=== PATIENT | male | born 1970 | race Caucasian/White ===

== ENCOUNTER 2016-07-02 15:47 | Emergency (ER) | payer SELFPAY ==
[~2016-07-02] VITALS: Ht 180.3 cm; Wt 73.4 kg
[~2016-07-02 15:47] MED LIST: LAMO150T32 PO; LEVO150T9 PO
[2016-07-02 15:51] VITALS: TEMP 36.8; Ht 180.3 cm; Wt 73.4 kg
[2016-07-02] MEDS ORDERED: SODIUM CHLORIDE 0.9% 1000ML 1,000 ML IV STA ×2 (16:04)
[2016-07-02] MEDS ORDERED: ONDANSETRON 8 MG/54 ML D5W IV STA (16:08)
[2016-07-02] MEDS ORDERED: DIAZEPAM INJ 5 MG/ML 2 ML CARP IV STA (16:08)
[2016-07-02 16:23] LABS: PROTHROMBIN TIME (PATIENT) 10.7 SECONDS (9.0-12.0)
[2016-07-02 16:29] LABS: BUN/CREATININE RATIO 13.1 (10-20); CALCIUM 8.7 mg/dl (8.5-10.1); CREATININE 0.91 mg/dl (0.60-1.40); MAGNESIUM 2.3 mg/dl (1.8-2.4)
[2016-07-02 16:40] LABS: THYROID STIMULATING HORMONE 1.2 uIu/ml (0.300-4.500)
[2016-07-02 16:58] LABS: BASO % 0.1 %; BASO ABS # 0.01 K/uL (0-0.2); COMPLETE YES; HEMATOCRIT 41.5 % (42-52); IG% 0.2 %; LYMPH % 8.8 %; LYMPH ABS # 0.94 K/uL (1.2-3.4); MEAN CELL VOLUME 90.4 fL (80-100); MEAN CORPUSCULAR HEMOGLOBIN 32.5 pg (25-34); MEAN CORPUSCULAR HGB CONC 35.9 g/dl (32-36); MEAN PLATELET VOLUME 8.8 fL (7.4-10.4); MONO % 5.4 %; NEUT % 85.5 %; PLATELET COUNT 225 K/uL (130-400); RED BLOOD COUNT 4.59 M/uL (4.7-6.1)
--- NOTE | 2016-07-02 17:30 | DIAGNOSTIC IMAGING REPORT ---
HEAD CT NONCONTRAST CT DOSE: 614.27 mGy.cm HISTORY: dizziness TECHNIQUE: Multiaxial CT images of the head were performed without the use of intravenous contrast. Automated exposure control was utilized for this study. Comparison: None. Findings: Partial opacification of the ethmoid air cells. The mastoid air cells are clear. Prominence of the left retrocerebellar extra-axial space which measures up to 2.2 cm in thickness. This is consistent with an arachnoid cyst. The calvarium and skull base are intact. The ventricles and sulci are within normal limits. There is no mass, hematoma, midline shift, or acute infarct. Impression: No acute intracranial abnormality. Left retrocerebellar arachnoid cyst. Partial opacification of the ethmoid air cells. Electronically signed by: Tom Beard M.D. 07/02/2016 5:28 PM Dictated Date/Time: 07/02/2016 5:25 PM
[2016-07-02] MEDS ORDERED: PHENERGAN 25MG HOMEPACK PO ONE (18:30)
[2016-07-02] MEDS ORDERED: DIAZEPAM 5MG TAB PO STA (18:30)
[2016-07-02] MEDS ORDERED: PROM25TA9 PO (18:31)
[2016-07-02] MEDS ORDERED: DIAZ-165 PO (18:31)
[2016-07-02 18:40] VITALS: BP 123/74; PULSE 89; O2SAT 98
--- NOTE | 2016-07-02 22:54 | EMERGENCY ROOM VISIT NOTE ---
History Report prepared by Paul: Jay Armenta Under the Supervision of: Dr. Héctor Law M.D. First contact with patient: 16:01 Chief Complaint: VERTIGO Stated Complaint: VERTIGO SX Nursing Triage Summary: pt arrives via EMS reports vertigo with any type of movement X 12 hours with NV , pt denies cp sob or [place], denies recent illness + PO intake prior to vertigo episode History of Present Illness The patient is a 46 year old male who presents to the Emergency Room with complaints of persistent dizziness for the past 12 hours. The patient describes a room-spinning sensation. He woke up with the dizziness as well as cold sweats. The patient also complains of nausea and vomiting with the dizziness. His symptoms are exacerbated by any movement. The patient has never felt like this before. He has only experienced mild dizziness in the past when on amusement park rides. The patient denies any recent trauma or neck injury. He also denies recent chiropractic work on his neck. The patient has a history of hypothyroidism. [facility] Patient denies LOC, headache , fevers, chills, visual changes, hearing loss or ear ringing, neck pain, chest pain, breathing difficulties, abdominal pain, back pain, melena, hematochezia, urinary symptoms, numbness, weakness, lymphadenopathy, rash, or other complaints. Source of History: patient Onset: 12 hours ago Position: other (global) Quality: other (dizziness) Timing: other (persistent) Modifying Factors (Worsening): movement Associated Symptoms: + nausea, + vomiting Review of Systems See HPI for pertinent positives and negatives. A total of ten systems were reviewed and were otherwise negative. Past Medical & Surgical Medical Problems: (1) Back strain (2) Hypothyroid (3) Splenic laceration Family History No pertinent family history Social History Smoking Status: Current Every Day Smoker Drug Use: none Marital Status: Housing Status: lives with family Occupation Status: employed Current/Historical Medications Scheduled Lamotrigine (Lamictal), 150 MG PO BID Levothyroxine Sodium (Levothyroxine Sodium), 150 MCG PO DAILY Scheduled PRN Diazepam (Valium), 5 MG PO Q6H PRN for Dizziness or Vertigo Promethazine Hcl (Phenergan), 25 MG PO Q6H PRN for Nausea Allergies Coded Allergies: Erythromycin (Verified Allergy, Unknown, UNKNOWN, 11/15/14) Macrolides (Verified Allergy, Unknown, 11/15/14) Physical Exam Vital Signs Date Time Temp Pulse Resp B/P Pulse Ox O2 Delivery O2 Flow Rate FiO2 07/02/16 18:40 89 16 123/74 98 07/02/16 18:17 83 18 126/70 97 Room Air 07/02/16 17:00 83 18 121/70 97 Room Air 07/02/16 16:14 88 07/02/16 15:51 36.8 82 20 131/89 99 Room Air 07/02/16 15:50 82 120/77 83 131/89 92 120/81 Physical Exam GENERAL: Awake, alert, uncomfortable-appearing, in no distress HENT: Normocephalic, atraumatic. Oropharynx unremarkable. EYES: Normal conjunctiva. Sclera non-icteric. NECK: Supple. No nuchal rigidity. FROM. No JVD. RESPIRATORY: Clear to auscultation. CARDIAC: Regular rate, normal rhythm. Extremities warm and well perfused. Pulses equal. ABDOMEN: Soft, non-distended. No tenderness to palpation. No rebound or guarding. No masses. RECTAL: Deferred. MUSCULOSKELETAL: Chest examination reveals no tenderness. The back is symmetrical on inspection without obvious abnormality. There is no CVA tenderness to palpation. No joint edema. LOWER EXTREMITIES: Calves are equal size bilaterally and non-tender. No edema. No discoloration. NEURO: Normal sensorium. No sensory or motor deficits noted. Lateral nystagmus to the right side, unable to complete Halpike secondary to being extremely nauseated. SKIN: No rash or jaundice noted. Medical Decision & Procedures ER Provider Diagnostic Interpretation: Radiology results as stated below per my review and radiologist interpretation: HEAD CT NONCONTRAST CT DOSE: 614.27 mGy.cm HISTORY: dizziness TECHNIQUE: Multiaxial CT images of the head were performed without the use of intravenous contrast. Automated exposure control was utilized for this study. Comparison: None. Findings: Partial opacification of the ethmoid air cells. The mastoid air cells are clear. Prominence of the left retrocerebellar extra-axial space which measures up to 2.2 cm in thickness. This is consistent with an arachnoid cyst. The calvarium and skull base are intact. The ventricles and sulci are within normal limits. There is no mass, hematoma, midline shift, or acute infarct. Impression: No acute intracranial abnormality. Left retrocerebellar arachnoid cyst. Partial opacification of the ethmoid air cells. Electronically signed by: Tom Beard M.D. 07/02/2016 5:28 PM Dictated Date/Time: 07/02/2016 5:25 PM Laboratory Results 07/02/16 16:48 Red Blood Count 4.59, Mean Corpuscular Volume 90.4, Mean Corpuscular Hemoglobin 32.5, Mean Corpuscular Hemoglobin Concent 35.9, Mean Platelet Volume 8.8, Neutrophils (%) (Auto) 85.5, Lymphocytes (%) (Auto) 8.8, Monocytes (%) (Auto) 5.4, Eosinophils (%) (Auto) 0.0, Basophils (%) (Auto) 0.1, Neutrophils # (Auto) 9.15, Lymphocytes # (Auto) 0.94, Monocytes # (Auto) 0.58, Eosinophils # (Auto) 0.00, Basophils # (Auto) 0.01 07/02/16 16:00 Test 07/02/16 16:00 07/02/16 16:48 Prothrombin Time 10.7 SECONDS (9.0-12.0) Prothromb Time International Ratio 1.0 (0.9-1.1) Activated Partial Thromboplast Time 27.0 SECONDS (21.0-31.0) Partial Thromboplastin Ratio 1.0 Anion Gap 9.0 mmol/L (3-11) Est Creatinine Clear Calc Drug Dose 107.5 ml/min Estimated GFR () 118.4 Estimated GFR (Non- 102.1 BUN/Creatinine Ratio 13.1 (10-20) Calcium Level 8.7 mg/dl (8.5-10.1) Magnesium Level 2.3 mg/dl (1.8-2.4) Total Bilirubin 0.5 mg/dl (0.2-1) Direct Bilirubin 0.1 mg/dl (0-0.2) Aspartate Amino Transf (AST/SGOT) 18 U/L (15-37) Alanine Aminotransferase (ALT/SGPT) 48 U/L (12-78) Alkaline Phosphatase 85 U/L (45-117) Total Protein 7.8 gm/dl (6.4-8.2) Albumin 3.8 gm/dl (3.4-5.0) Lipase 97 U/L (73-393) Thyroid Stimulating Hormone (TSH) 1.200 uIu/ml (0.300-4.500) White Blood Count 10.70 K/uL (4.8-10.8) Red Blood Count 4.59 M/uL (4.7-6.1) Hemoglobin 14.9 g/dL (14.0-18.0) Hematocrit 41.5 % (42-52) Mean Corpuscular Volume 90.4 fL (80-100) Mean Corpuscular Hemoglobin 32.5 pg (25-34) Mean Corpuscular Hemoglobin Concent 35.9 g/dl (32-36) Platelet Count 225 K/uL (130-400) Mean Platelet Volume 8.8 fL (7.4-10.4) Neutrophils (%) (Auto) 85.5 % Lymphocytes (%) (Auto) 8.8 % Monocytes (%) (Auto) 5.4 % Eosinophils (%) (Auto) 0.0 % Basophils (%) (Auto) 0.1 % Neutrophils # (Auto) 9.15 K/uL (1.4-6.5) Lymphocytes # (Auto) 0.94 K/uL (1.2-3.4) Monocytes # (Auto) 0.58 K/uL (0.11-0.59) Eosinophils # (Auto) 0.00 K/uL (0-0.5) Basophils # (Auto) 0.01 K/uL (0-0.2) RDW Standard Deviation 39.6 fL (36.4-46.3) RDW Coefficient of Variation 12.0 % (11.5-14.5) Immature Granulocyte % (Auto) 0.2 % Immature Granulocyte # (Auto) 0.02 K/uL (0.00-0.02) Laboratory results reviewed by me Medications Administered Medications (Trade) Dose Ordered Sig/Brandon Route Start Time Stop Time Status Last Admin Dose Admin Sodium Chloride 1,000 ml @ 125 mls/hr Q8H STAT IV 07/02/16 16:04 07/02/16 19:20 DC 07/02/16 16:19 125 MLS/HR Sodium Chloride (Nss 1000ml) 1,000 ml @ 999 mls/hr Q1H1M STAT IV 07/02/16 16:04 07/02/16 17:04 DC 07/02/16 16:04 999 MLS/HR Ondansetron HCl (Zofran 8mg Iv) 8 mg NOW STAT IV 07/02/16 16:08 07/02/16 16:10 DC 07/02/16 16:20 8 MG Diazepam (Valium Inj) 5 mg NOW STAT IV 07/02/16 16:08 07/02/16 16:10 DC 07/02/16 16:19 5 MG ECG Indication: other (dizziness) Rate (beats per minute): 81 Rhythm: sinus with SA Findings: no acute ischemic change, no ectopy ED Course 1604: NSS 1000 ml @ 999 mls/hr, NSS 1000 ml @ 125 mls/hr. 1605 The patient was evaluated in room A10. A complete history and physical exam was performed. 1608: Valium 5 mg IV, Zofran 8 mg IV. 1755: The patient feels a lot better. Will attempt an ambulatory trail. 1820: The ambulatory trail went well. The patient feels great. He will be prepared for discharge. 1830: Phenergan 25 mg PO homepack, Valium Tab mg PO. Medical Decision Triage Nursing notes reviewed. The patient's presentation and history were concerning for dizziness, nausea, and vomiting. Etiologies such as benign positional vertigo, tumor, infection, hypoglycemia, electrolyte abnormalities, cardiac sources, intracerebral event, toxicologic, neurologic, as well as others were entertained. The patient was evaluated and was quite symptomatic. No pathologic nystagmus noted. He could not complete Gupta-pike secondary to symptoms. The patient was treated with valium and zofran. He was hydrated. He rested. He felt much better. His CBC and chemistry panel was unremarkable. ECG was unremarkable. Head CT showed an arachnoid cyst. The patient had some fluid in the ethmoid however he notes no sinusitis symptoms. He has no headache. The patient was able to tolerate oral intake without difficulty. He was ambulated and did very well with this. I suspect this is a positional vertigo episode as he has a history to support this and physical examination as well. The patient was reassessed. Conservative management was discussed. He was in agreement. The patient was discharged. By the evaluation outlined above other emergent etiologies such as those listed in the differential, as well as others, were deemed relatively unlikely. The patient was informed about the findings as listed above. All questions were answered and he was pleased with the treatment. Return instructions were outlined and the patient was discharged in stable condition. The patient was referred to his PCP for follow-up this week for a recheck of the current condition. The chart was completed utilizing [employer] Speech voice recognition software. Grammatical errors, random word insertions, pronoun errors, and incomplete sentences are an occasional consequence of this system due to software limitations, ambient noise, and hardware issues. Any formal questions or concerns about the content, text, or information contained within the body of this dictation should be directly addressed to the physician for clarification. Impression Primary Impression: Dizziness Additional Impression: Nausea & vomiting Scribe Attestation The scribe's documentation has been prepared under my direction and personally reviewed by me in its entirety. I confirm that the note above accurately reflects all work, treatment, procedures, and medical decision making performed by me. Departure Information Dispostion Home / Self-Care Prescriptions Promethazine Hcl (Phenergan) 25 Mg Tab 25 MG PO Q6H Y for Nausea, #10 TAB Prov: Héctor Law MD 07/02/16 Diazepam (Valium) 5 Mg Tab 5 MG PO Q6H Y for Dizziness or Vertigo, #10 TAB Prov: Héctor Law MD 07/02/16 Referrals No Doctor, Assigned (PCP) Forms HOME CARE DOCUMENTATION FORM, IMPORTANT VISIT INFORMATION, WORK / SCHOOL INSTRUCTIONS Patient Instructions My [facility], Vertigo Paroxysmal Positional Additional Instructions DIZZINESS INSTRUCTIONS: DO NOT drive, drink alcohol, operate machinery, or perform dangerous activities today. You were given medications in the ER that can affect your ability to safely function or operate a vehicle. You should not drive or perform any dangerous activities until your symptoms resolve. Valium 5mg: Take 1 pill every 6 hours as needed for dizziness or vertigo. Avoid alcohol, operating machinery or dangerous equipment, working on ladders or roofs, DRIVING, or situations where being under the influence may be dangerous Phenergan(promethazine) tablets 25mg: Take one every six hours as needed for nausea. Avoid alcohol, operating machinery or dangerous equipment, working on ladders or roofs, DRIVING, or situations where being under the influence may be dangerous. Rest and drink plenty of fluids as tolerated. Continue current medications. If you have nausea or vomiting: Once your stomach is settled start with a clear liquid diet (jello, soup broth, etc.) and then advance as tolerated. You should avoid full, heavy meals for about 24 hrs from the time your symptoms resolved. Return to the ER immediately for worsening or persistent dizziness, vomiting, headache, fevers, chest pains, difficulty breathing, black or bloody stools, slurred speech, numbness, weakness, visual changes, worsening of your condition , or as needed. Follow up [facility] in 2-3 days for a recheck of your current condition. Problem Qualifiers
== END 2016-07-02 18:40 | disposition home or self-care (01) ==
LOC: EDBD 15:47 → C.EDA 15:49
DX: R42 Dizziness and giddiness (principal); R11.2 Nausea with vomiting, unspecified; E03.9 Hypothyroidism, unspecified; F17.210 Nicotine dependence, cigarettes, uncomplicated; Z79.899 Other long term (current) drug therapy